=== PATIENT | male | born 1945 | race Caucasian/White ===

== ENCOUNTER 2018-02-27 06:06 | Day surgery (SDC) | payer MEDICARE, BC ==
[~2018-02-27] VITALS: Ht 188 cm; Wt 64.0 kg
[~2018-02-27 06:06] MED LIST: TAMS-11 PO
[2018-02-27] MEDS ORDERED: LACTATED RINGERS 1,000 ML IV SCH (07:01)
[2018-02-27] MEDS ORDERED: EPINEPHRINE 1 MG/ML, 1ML ONE (07:09)
[2018-02-27] MEDS ORDERED: FENTANYL PF 250 MCG/5ML ONE (07:11)
[2018-02-27 07:27] VITALS: BP 128/82
[2018-02-27] MEDS ORDERED: PROPOFOL 10 MG/ML, 20ML ONE (07:29)
[2018-02-27] MEDS ORDERED: ACETAMINOPHEN 500 MG TABLET PO ONE (07:30)
[2018-02-27] MEDS ORDERED: FENTANYL PF 100 MCG/2ML ONE (08:20)
[2018-02-27] MEDS ORDERED: hydrALAzine 20 MG/ML, 1ML IV PRN (08:30)
[2018-02-27] MEDS ORDERED: MORPHINE SULFATE 4 MG/ML, 1ML IVPush PRN (08:30)
[2018-02-27] MEDS ORDERED: LABETALOL 5MG/ML, 20ML IV PRN (08:30)
[2018-02-27] MEDS ORDERED: FENTANYL PF 100 MCG/2ML IV PRN (08:30)
== END 2018-02-27 10:20 | disposition home or self-care (01) ==
LOC: OUT 06:06
PROVIDERS: ATTEND Otolaryngology
DX: J38.7 Other diseases of larynx (principal); K31.89 Other diseases of stomach and duodenum; I10 Essential (primary) hypertension; I25.10 Atherosclerotic heart disease of native coronary artery without angina pectoris; Z98.890 Other specified postprocedural states; Z79.899 Other long term (current) drug therapy; Z85.118 Personal history of other malignant neoplasm of bronchus and lung; Z85.3 Personal history of malignant neoplasm of breast
CPT/HCPCS: 31535; 43202; 88305; 93005; J2704; J3010; J7120; J0171

== ENCOUNTER → 2018-04-06 | Outpatient (CLI) | payer MEDICARE, BC | END | disposition home or self-care (01) | LOC: RAD 08:47 | PROVIDERS: ATTEND Otolaryngology | DX: J34.89 Other specified disorders of nose and nasal sinuses (principal); K21.9 Gastro-esophageal reflux disease without esophagitis; R13.10 Dysphagia, unspecified | CPT/HCPCS: 74220 ==